=== PATIENT | female | born 1940 | race Caucasian/White ===

== ENCOUNTER 2024-05-17 12:12 | Outpatient (CLI) | payer MEDICARE ==
[~2024-05-17 12:12] MED LIST: Iopamidol 370 76% 100 ML VIAL ONE; Magnevist 469MG/ML 20 ML VIAL ONE
== END 2024-05-17 12:13 | disposition home or self-care (01) ==
LOC: CT 12:12
DX: R42 Dizziness and giddiness (principal); R53.82 Chronic fatigue, unspecified; R90.82 White matter disease, unspecified; J32.0 Chronic maxillary sinusitis; R91.1 Solitary pulmonary nodule
CPT/HCPCS: 70496; 70498; 70553; 76376; 82565; Q9967